=== PATIENT | female | born 1990 | race Two or more races ===

== ENCOUNTER 2017-03-19 13:23 | Emergency (ER) | payer MEDICAID, OTHER ==
[~2017-03-19] VITALS: Ht 154.9 cm; Wt 48.5 kg
[2017-03-19 13:51] VITALS: BP 116/65
[2017-03-19 14:11] LABS: Urine Bacteria FEW /hpf (None Seen); Urine Blood Negative /uL (Negative); Urine Specific Gravity 1.009 (1.001-1.035); Urine WBC <1 /hpf (0 - 5)
[2017-03-19 15:16] LABS: Basophils # (auto) 0.1 uL; Eosinophils # (auto) 0.2 uL; Eosinophils % (auto) 1.5 % (0.0-7.0); Hematocrit 24.1 % (36.0-46.0); Hemoglobin 8.3 g/dL (12.2-16.2); Lymphocytes # (auto) 1.6 uL; Lymphocytes % (auto) 15.1 % (10.0-50.0); Mean Corpuscular Hemoglobin 32.9 pg (28.0-32.0); Mean Corpuscular Hgb Conc. 34.5 g/dL (32.0-36.0); Mean Corpuscular Volume 95.5 fL (80.0-100.0); Monocytes # (auto) 0.4 uL; Neutrophils # (auto) 8.1 uL; Neutrophils % (auto) 78.4 % (37.0-80.0); Platelet Count (auto) 314 10^3/uL (140-450); Red Blood Cells 2.52 10^6/uL (4.0-5.20); Red Cell Distribution Width 13.7 % (11.8-14.3); White Blood Cell 10.4 10^3/uL (4.4-10.8)
[2017-03-19 15:54] LABS: Potassium 4.2 mmol/L (3.5-5.1)
[2017-03-19 15:55] LABS: BUN/Creatinine Ratio 21.7; Bilirubin, Total 0.2 mg/dL (0.2-1.0); Calcium 8.5 mg/dL (8.5-10.1); Total Protein 7.2 g/dL (6.4-8.2)
== END 2017-03-19 17:32 | disposition home or self-care (01) ==
LOC: ER 13:23
DX: O26.892 Other specified pregnancy related conditions, second trimester (principal); R10.9 Unspecified abdominal pain; Z34.92 Encounter for supervision of normal pregnancy, unspecified, second trimester; Z3A.16 16 weeks gestation of pregnancy
CPT/HCPCS: 36415; 80053; 81001; 84702; 85025

== ENCOUNTER 2017-04-09 14:30 | Observation (INO) | payer MEDICAID ==
[2017-04-09] MEDS ORDERED: LEVO25TA6 PO (15:01)
[2017-04-09] MEDS ORDERED: INSLANTI SC (15:01)
[2017-04-09] MEDS ORDERED: PREN-96 PO (15:01)
[2017-04-09] MEDS ORDERED: INSLISPI SC (15:01)
[2017-04-09] MEDS ORDERED: NIFEdipine 10 MG CAP PO ONE (16:00)
== END 2017-04-09 16:30 | disposition home or self-care (01) | DRG 566 ==
LOC: LDRP 14:30
PROVIDERS: ADMIT Obstetrics & Gynecology; ATTEND Obstetrics & Gynecology
DX: O24.312 Unspecified pre-existing diabetes mellitus in pregnancy, second trimester (principal); Z87.891 Personal history of nicotine dependence; Z3A.21 21 weeks gestation of pregnancy
CPT/HCPCS: 59025; 81002; G0378